=== PATIENT | female | born 2000 | race American Indian/Alaskan Native ===

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

== ENCOUNTER 2018-03-31 11:18 | Emergency (ER) | payer OTHER ==
[2018-03-31 12:03] LABS: Bacteria,Urine 2+ /HPF (Negative); Bilirubin,Urine NEG (Negative); Blood,Urine LG (Negative); Color,Urine Yellow (Yellow); Mucus,Urine 3+ /HPF
[2018-03-31 12:04] LABS: RBC,Urine > 182.0 /HPF (0.0-6.0)
--- NOTE | 2018-03-31 12:18 | Emergency Department Report ---
ED Abdominal Pain HPI - General Chief Complaint: Abdominal Pain Stated Complaint: 18 WKS /LOWER ABD PAIN/HEADACHE Time Seen by Provider: 03/31/18 11:53 Source: patient Mode of arrival: Ambulatory Limitations: No Limitations - History of Present Illness Initial Comments: Ms. Landaverde is a 17 yo who is currently 18 weeks 2 days . She presents with 3 days of Right lower quadrant pain radiating to right back. She has had similar pain intermittently since 11 weeks. She has a large ovarian cyst 6 cm on right which has been followed by her OBGYN physician at [facility]. Pain is achy, moderately severe. No treatment attempted prior to arrival. Pain is worse with supine position. No fever. No vomiting. No vaginal bleeding. No vaginal discharge. Intact appetite. First for patient ASHVIN August 30, 2018 Severity scale (0 -10): 0 - Related Data Previous Rx's Medication Instructions Recorded Last Taken Type Erythromycin [Erythromycin Ophth 0.25 inch TP TID #1 tube 02/05/15 Unknown Rx Oint] Sulfamethoxazole/Trimethoprim 1 each PO BID #10 tablet 02/05/15 Unknown Rx [Bactrim DS TAB] Ibuprofen [Motrin 600 MG tab] 600 mg PO TID #30 tablet 02/04/17 Unknown Rx Amoxicillin/Potassium Clav 1 each PO BID #14 tablet 08/18/17 Unknown Rx [Augmentin 875-125 Tablet] Dextromethorphan/Benzocaine 1 each PO Q4H PRN #1 box 08/18/17 Unknown Rx [Cepacol Sorethroat-Cough Magdy] Ibuprofen [Motrin] 600 mg PO Q8H PRN #20 tablet 08/18/17 Unknown Rx Ibuprofen [Motrin] 600 mg PO Q8H PRN #20 tablet 12/18/17 Unknown Rx Nitrofurantoin Macrocrystal 100 mg PO BID 10 Days #20 capsule 01/21/18 Unknown Rx [Nitrofurantoin] Ondansetron [Zofran Odt] 4 mg PO Q8HR #15 tab.rapdis 02/10/18 Unknown Rx metroNIDAZOLE [Metronidazole] 500 mg PO BID #14 tablet 02/10/18 Unknown Rx Allergies Allergy/AdvReac Type Severity Reaction Status Date / Time No Known Allergies Allergy Verified 09/27/17 11:54 ED Review of Systems ROS: Stated complaint: 18 WKS /LOWER ABD PAIN/HEADACHE Other details as noted in HPI Comment: All other systems reviewed and negative Constitutional: denies: fever, malaise Respiratory: denies: cough Cardiovascular: denies: chest pain Gastrointestinal: abdominal pain. denies: nausea, vomiting, diarrhea Genitourinary: denies: urgency, dysuria, frequency, discharge ED Past Medical Hx - Past Medical History Previous Medical History?: Yes Hx Psychiatric Treatment: Yes (DEPRESSION) Additional medical history: strep throat - Social History Smoking Status: Never Smoker Substance Use Type: None - Medications Home Medications: Home Medications Medication Instructions Recorded Confirmed Last Taken Type Erythromycin [Erythromycin Ophth 0.25 inch TP TID #1 tube 02/05/15 Unknown Rx Oint] Sulfamethoxazole/Trimethoprim 1 each PO BID #10 tablet 02/05/15 Unknown Rx [Bactrim DS TAB] Ibuprofen [Motrin 600 MG tab] 600 mg PO TID #30 tablet 02/04/17 Unknown Rx Amoxicillin/Potassium Clav 1 each PO BID #14 tablet 08/18/17 Unknown Rx [Augmentin 875-125 Tablet] Dextromethorphan/Benzocaine 1 each PO Q4H PRN #1 box 08/18/17 Unknown Rx [Cepacol Sorethroat-Cough Magdy] Ibuprofen [Motrin] 600 mg PO Q8H PRN #20 tablet 08/18/17 Unknown Rx Ibuprofen [Motrin] 600 mg PO Q8H PRN #20 tablet 12/18/17 Unknown Rx Nitrofurantoin Macrocrystal 100 mg PO BID 10 Days #20 capsule 01/21/18 Unknown Rx [Nitrofurantoin] Ondansetron [Zofran Odt] 4 mg PO Q8HR #15 tab.rapdis 02/10/18 Unknown Rx metroNIDAZOLE [Metronidazole] 500 mg PO BID #14 tablet 02/10/18 Unknown Rx ED Physical Exam - General Limitations: No Limitations General appearance: alert, in no apparent distress - Head Head exam: Present: atraumatic, normocephalic - Eye Eye exam: Present: normal appearance - ENT ENT exam: Present: mucous membranes moist - Neck Neck exam: Present: normal inspection. Absent: tenderness, meningismus - Respiratory Respiratory exam: Present: normal lung sounds bilaterally. Absent: respiratory distress, wheezes, rales, rhonchi - Cardiovascular Cardiovascular Exam: Present: regular rate, normal rhythm. Absent: systolic murmur, diastolic murmur, rubs, gallop - GI/Abdominal GI/Abdominal exam: Present: soft, normal bowel sounds. Absent: tenderness, guarding, rebound - Extremities Exam Extremities exam: Present: normal inspection - Back Exam Back exam: Present: normal inspection, full ROM. Absent: tenderness, CVA tenderness (R) - Neurological Exam Neurological exam: Present: alert, oriented X3, normal gait - Psychiatric Psychiatric exam: Present: normal affect, normal mood - Skin Skin exam: Present: warm, dry, intact, normal color. Absent: rash ED Course Vital Signs 03/31/18 03/31/18 03/31/18 11:22 11:54 11:55 Temperature 98.6 F Pulse Rate 108 H 97 H Respiratory 18 18 18 Rate Blood Pressure 117/66 Blood Pressure 104/67 [Right] O2 Sat by Pulse 100 98 98 Oximetry ED Medical Decision Making - Medical Decision Making Mariann is a very pleasant 17 yo female who presents with RLQ pain during second trimester . I do not suspect acute appendicitis, renal colic, pyelonephritis or ovarian torsion with today's presentation. Patient was placed on monitor. During my examination heart rate 79 beats minute, pressure 104/60. No peritoneal signs on examination. I performed bedside ultrasound with transabdominal probe. Positive movement with cardiac activity. Pain possibly due to round ligament pain. I do not suspect persistent pain due to previously seen ovarian cyst however it is possibility. Mother and patient given strong return precautions to return for severe pain, different type of pain, fever, poor appetite, vomiting or vaginal bleeding. Recommended Tylenol and heat. Discharged home in stable condition. She has visit April 10. I reviewed the urinalysis result. Contaminated specimen. Antibiotic therapy is not indicated at this time. Critical care attestation.: If time is entered above; I have spent that time in minutes in the direct care of this critically ill patient, excluding procedure time. ED Disposition Clinical Impression: Abdominal pain affecting Disposition: - TO HOME OR SELFCARE Is pt being admited?: No Does the pt Need Aspirin: No Condition: Stable Instructions: Abdominal Pain in (ED) Referrals: [facility] [Provider Group] - 3-5 Days
[2018-03-31] MEDS ORDERED: TYLENOL PO ONE (12:20)
[2018-04-02 11:57] VITALS: BP 104/67
== END 2018-03-31 12:35 | disposition home or self-care (01) ==
LOC: ED 11:18
DX: O26.891 Other specified pregnancy related conditions, first trimester (principal); F32.9 Major depressive disorder, single episode, unspecified; Z3A.13 13 weeks gestation of pregnancy
CPT/HCPCS: 81001

== ENCOUNTER 2018-07-06 11:05 | Outpatient (CLI) | payer OTHER ==
[2018-07-06 11:22] VITALS: BP 105/76
--- NOTE | 2018-07-06 13:13 | Ultrasound Report ---
BIOPHYSICAL PROFILE: INDICATION: Fell on abdomen 07/02/2018. COMPARISON: None similar. TECHNIQUE: Transabdominal ultrasound with Doppler interrogation. 2 - breathing movements 2 - movements 2 - posture and tone 2 - Qualitative amniotic fluid volume 8 - TOTAL SCORE OF POSSIBLE 8 Heart Rate (bpm) 134 CONCLUSION: Findings, as above.
--- NOTE | 2018-07-06 13:14 | Ultrasound Report ---
OB LIMITED INDICATION: labor. COMPARISON: 02/10/2018 TECHNIQUE: Transabdominal grayscale ultrasound with Doppler interrogation. Gestation: Srivastava Position: Cephalic Amniotic Fluid: WNL (7-24 cm) LEE = 12.7 cm Heart Rate: 134 BPM CONCLUSION: Findings, as above.
== END 2018-07-06 13:25 | disposition home or self-care (01) ==
LOC: TRG 11:05
PROVIDERS: ATTEND Obstetrics & Gynecology
DX: O47.03 False labor before 37 completed weeks of gestation, third trimester (principal); Z3A.31 31 weeks gestation of pregnancy
CPT/HCPCS: 59025; 76815; 76819

== ENCOUNTER 2018-07-15 14:00 | Outpatient (CLI) | payer OTHER ==
[2018-07-15 14:42] VITALS: BP 122/78
[2018-07-15] MEDS ORDERED: LACTATED RINGERS 500 ML IV ONE (15:03)
[2018-07-15 17:05] LABS: Bacteria,Urine 3+ /HPF (Negative); Bilirubin,Urine NEG (Negative); Blood,Urine NEG (Negative); Color,Urine Yellow (Yellow); Mucus,Urine FEW /HPF; Protein,Urine <15 mg/dL mg/dL (Negative); Urobilinogen,Urine < 2.0 mg/dL (<2.0)
[2018-07-15] MEDS ORDERED: ROCEPHIN IM STA (17:24)
[2018-07-15] MEDS ORDERED: XYLOCAINE 1% MPF 5 mL INFILTRATI STA (17:24)
== END 2018-07-15 18:01 | disposition home or self-care (01) ==
LOC: TRG 14:00
PROVIDERS: ATTEND Obstetrics & Gynecology
DX: O26.893 Other specified pregnancy related conditions, third trimester (principal); R10.31 Right lower quadrant pain; M54.9 Dorsalgia, unspecified; R51 Headache; R11.0 Nausea; O60.03 Preterm labor without delivery, third trimester; Z3A.32 32 weeks gestation of pregnancy
CPT/HCPCS: 36415; 59025; 81001; 82731; 96372; J0696

== ENCOUNTER 2018-08-18 16:10 | Inpatient (IN) | payer OTHER ==
[2018-08-18] MEDS ORDERED: LACTATED RINGERS 1,000 ML IV SCH ×2 (17:00→20:00)
[2018-08-18 17:40] LABS: Bacteria,Urine 1+ /HPF (Negative); Bilirubin,Urine NEG (Negative); Blood,Urine NEG (Negative); Color,Urine Yellow (Yellow); Mucus,Urine FEW /HPF; Protein,Urine <15 mg/dL mg/dL (Negative)
[2018-08-18 19:16] LABS: Basophils # (Auto) 0.1 K/mm3 (0.0-0.1); Basophils % (Auto) 0.7 % (0.0-1.8); Eosinophils % (Auto) 0.2 % (0.0-4.3); Hematocrit 28.5 % (30.3-42.9); Hemoglobin 9.1 gm/dl (10.1-14.3); Lymphocytes # (Auto) 1.7 K/mm3 (1.2-5.4); Mean Corpuscular HGB Conc 32 % (30-34); Mean Corpuscular Volume 83 fl (79-97); Monocytes # (Auto) 0.7 K/mm3 (0.0-0.8); Monocytes % (Auto) 6.6 % (0.0-7.3); Platelet Count 400 K/mm3 (140-440); Red Blood Count 3.44 M/mm3 (3.65-5.03)
[2018-08-18 19:24] LABS: Alanine Aminotransferase 11 units/L (7-56); Albumin 3.7 g/dL (3.9-5)
[2018-08-18] MEDS ORDERED: SUBLIMAZE IV PRN (19:37)
[2018-08-18] MEDS ORDERED: AMPICILLIN/NS 2 GM/100 ML 2 GM/100 ML BAG IV ONE (19:37)
[2018-08-18] MEDS ORDERED: XYLOCAINE 2% INFILTRATI ONE (19:37)
[2018-08-18] MEDS ORDERED: BRETHINE SUB-Q PRN (19:37)
[2018-08-18 19:42] LABS: BUN/Creatinine Ratio 13; Blood Urea Nitrogen 9 mg/dL (7-17); Calcium 8.8 mg/dL (8.4-10.2); Hemolysis Index 7
--- NOTE | 2018-08-18 19:49 | History and Physical Report ---
History of Present Illness Date of examination: 08/18/18 Date of admission: 08/18/2018 Chief complaint: Contractions History of present illness: 18 year old female presents to L&D with complaint of contractions. Patient denies vaginal bleeding or leaking of fluid. Pt. reports active movement. Denies headache or swelling or visual disturbance. Patient received care at [facility] and records were obtained. LMP 11/27/17. EDC 09/03/18. significant for vitamin D deficiency and anemia. labs are as follows: O+, antibody screen negative, rubella immune, hepatitis B surface antigen negative, HIV negative, RPR nonreactive, hemoglobin electrophoresis normal, urine culture negative, GC/CT/TV negative, 1 hour sugar test 105, GBS unknown. Past History Past Medical History: no pertinent history Past Surgical History: no surgical history [employer] History: denies: chlamydia, gonorrhea, hepatitis B, herpes, HIV, syphilis, trichomonas Family/Genetic History: diabetes, hypertension, stroke, cancer Social history: single, lives with family, full code. denies: smoking, alcohol abuse, prescription drug abuse, IV drug use - Obstetrical History Expected Date of Delivery: 09/03/18 Actual Gestation: 37 Week(s) 5 Day(s) : 1 Para: 0 Hx # Term Pregnancies: 0 Number of Pregnancies: 0 Spontaneous Abortions: 0 Induced : 0 Number of Living Children: 0 Medications and Allergies Allergies Allergy/AdvReac Type Severity Reaction Status Date / Time No Known Allergies Allergy Verified 07/15/18 13:38 Home Medications Medication Instructions Recorded Confirmed Last Taken Type No Known Home Medications [No 07/15/18 07/15/18 Unknown History Reported Home Medications] Active Meds: Active Medications Ephedrine Sulfate (Ephedrine Sulfate) 10 mg IV Q2M PRN PRN Reason: Hypotension Fentanyl (Sublimaze) 100 mcg IV Q2H PRN PRN Reason: Labor Pain Lactated Ringer's (Lactated Ringers) 1,000 mls @ 125 mls/hr IV DIRECT GIO Oxytocin/Sodium Chloride (Pitocin/Ns 20 Unit/1000ml Drip) 20 units in 1,000 mls @ 125 mls/hr IV DIRECT GIO Lactated Ringer's (Lactated Ringers) 1,000 mls @ 125 mls/hr IV DIRECT GIO Ampicillin Sodium (Ampicillin/Ns 2 Gm/100 Ml) 2 gm in 100 mls @ 100 mls/hr IV ONCE ONE; Protocol Stop: 08/18/18 20:36 Ampicillin Sodium (Ampicillin/Ns 1 Gm/50 Ml) 1 gm in 50 mls @ 100 mls/hr IV Q4HR [facility]; Protocol Lidocaine (Xylocaine 2%) 20 ml INFILTRATI ONCE ONE Stop: 08/18/18 19:38 Terbutaline Sulfate (Brethine) 0.25 mg SUB-Q ONCE PRN PRN Reason: Hyperstimulation/Hypertonicity Review of Systems All systems: negative (contractions) - Vital Signs Vital signs: Vital Signs Pulse BP 101 H 141/79 08/18/18 16:24 08/18/18 16:24 Temp Pulse Resp BP Pulse Ox 98.6 F 93 H 12 123/78 98 08/18/18 16:35 08/18/18 18:32 08/18/18 16:35 08/18/18 18:32 08/18/18 17:20 - Physical Exam Abdomen: Positive: normal appearance, soft. Negative: distention, tenderness, guarding, rigidity Genitourinary (Female): Positive: normal external genitalia, normal perenium (no lesions noted on careful exam with bright light upon admission). Negative: perineal/vulvar lesions Vagina: Positive: normal moisture Uterus: Positive: enlarged (size=dates) Anus/Rectum: Positive: normal perianal skin Extremities: Positive: normal. Negative: tenderness, edema - Obstetrical FHR: category 1 Uterine Contraction Monitor Mode: External Cervical Dilatation: 4 Cervical Effacement Percentage: 70 station: -3 Uterine Contraction Pattern: Regular Uterine Contraction Intensity: Moderate Results Result Diagrams: 08/18/18 18:25 08/18/18 18:25 Abnormal lab results 08/18/18 08/18/18 08/18/18 Range/Units 17:00 18:25 18:25 WBC 11.2 H (4.5-11.0) K/mm3 RBC 3.44 L (3.65-5.03) M/mm3 Hgb 9.1 L (10.1-14.3) gm/dl Hct 28.5 L (30.3-42.9) % MCH 27 L (28-32) pg RDW 16.0 H (13.2-15.2) % Seg Neutrophils % 77.5 H (40.0-70.0) % Seg Neutrophils # 8.7 H (1.8-7.7) K/mm3 Sodium 134 L (137-145) mmol/L Carbon Dioxide 16 L (22-30) mmol/L Alkaline Phosphatase 196 H (35-129) units/L Lactate Dehydrogenase 210 H (91-180) units/L Albumin 3.7 L (3.9-5) g/dL Urine WBC (Auto) 14.0 H (0.0-6.0) /HPF All other labs normal. Assessment and Plan A: at 37 weeks, 5 days gestation. Labor. GBS unknown. P: Admit. GBS prophylaxis. EFM. Anticipate vaginal .
[2018-08-18] MEDS ORDERED: PITOCin/NS 20 UNIT/1000ML DRIP 20 UNITS/1,000 ML BAG IV SCH (20:00)
[2018-08-19] MEDS: AMPICILLIN/NS 1 GM/50 ML 1 GM/50 ML BAG IV SCH ×4 (07:46→19:33)
--- NOTE | 2018-08-19 09:31 | Progress Note ---
Assessment and Plan A: at 37 6/7 weeks gestation. GBS positive. P: Continue GBS prophylaxis. Augment labor with Pitocin. Informed MD of Pitocin labor augmentation at 37 6/7 weeks. Discussed with patient risks and benefits of Pitocin augmentation of labor. Patient consented to Pitocin augmentation of labor. Subjective - Subjective Date of service: 08/19/18 Principal diagnosis: at 37 6/7 weeks Interval history: at 37 6/7 weeks gestation. Patient reports active movement. She denies leaking of fluid or vaginal bleeding. She denies headache. Patient reports: movement normal, contractions (Contractions have spaced overnight; now having mild irregular contractions), no new complaints, no loss of fluid, no vaginal bleeding Objective - Vital Signs Vital Signs: Vital Signs - 12hr 08/18/18 08/19/18 08/19/18 22:31 00:38 07:21 Temperature 97.9 F Pulse Rate 78 89 Respiratory 18 Rate Blood Pressure 106/68 121/75 08/19/18 07:26 Temperature Pulse Rate 81 Respiratory Rate Blood Pressure 133/90 - Exam Abdomen: Present: normal appearance. Absent: soft, distention, tenderness, rigidity Uterus: Present: normal, fundal height above umbilicus. Absent: bogginess, tenderness FHR: category 1 (Reviewed tracing from overnight: 2 variable FHR decelerations and one late FHR deceleration. No repetitive decels. ) Cervical Dilatation: 4 Cervical Effacement Percentage: 70 station: -3 Uterine Contraction Pattern: Irregular Uterine Contraction Intensity: Mild Extremities: normal - Labs Labs: Abnormal Labs 08/18/18 08/18/18 08/18/18 17:00 18:25 18:25 WBC 11.2 H RBC 3.44 L Hgb 9.1 L Hct 28.5 L MCH 27 L RDW 16.0 H Seg Neutrophils % 77.5 H Seg Neutrophils # 8.7 H Sodium 134 L Carbon Dioxide 16 L Alkaline Phosphatase 196 H Lactate Dehydrogenase 210 H Albumin 3.7 L Urine WBC (Auto) 14.0 H Laboratory Results - last 24 hr 08/18/18 08/18/18 08/18/18 17:00 18:25 18:25 WBC 11.2 H RBC 3.44 L Hgb 9.1 L Hct 28.5 L MCV 83 MCH 27 L MCHC 32 RDW 16.0 H Plt Count 400 Lymph % (Auto) 15.0 Swain % (Auto) 6.6 Eos % (Auto) 0.2 Baso % (Auto) 0.7 Lymph # 1.7 Swain # 0.7 Eos # 0.0 Baso # 0.1 Seg Neutrophils % 77.5 H Seg Neutrophils # 8.7 H Sodium 134 L Potassium 3.6 Chloride 101.7 Carbon Dioxide 16 L Anion Gap 20 BUN 9 Creatinine 0.7 Estimated GFR > 60 BUN/Creatinine Ratio 13 Glucose 76 Uric Acid Calcium 8.8 Total Bilirubin 0.40 AST 25 ALT 11 Alkaline Phosphatase 196 H Lactate Dehydrogenase 210 H Total Protein 7.4 Albumin 3.7 L Albumin/Globulin Ratio 1.0 Urine Color Yellow Urine Turbidity Slightly-cloudy Urine pH 6.0 Ur Specific [place] 1.015 Urine Protein <15 mg/dl Urine Glucose (UA) Neg Urine Ketones Neg Urine Blood Neg Urine Nitrite Neg Urine Bilirubin Neg Urine Urobilinogen 2.0 Ur Leukocyte Esterase Mod Urine WBC (Auto) 14.0 H Urine RBC (Auto) 2.0 U Epithel Cells (Auto) 4.0 Urine Bacteria (Auto) 1+ Urine Mucus Few Blood Type Antibody Screen 08/18/18 08/18/18 18:25 18:30 WBC RBC Hgb Hct MCV MCH MCHC RDW Plt Count Lymph % (Auto) Swain % (Auto) Eos % (Auto) Baso % (Auto) Lymph # Swain # Eos # Baso # Seg Neutrophils % Seg Neutrophils # Sodium Potassium Chloride Carbon Dioxide Anion Gap BUN Creatinine Estimated GFR BUN/Creatinine Ratio Glucose Uric Acid 4.4 Calcium Total Bilirubin AST ALT Alkaline Phosphatase Lactate Dehydrogenase Total Protein Albumin Albumin/Globulin Ratio Urine Color Urine Turbidity Urine pH Ur Specific [place] Urine Protein Urine Glucose (UA) Urine Ketones Urine Blood Urine Nitrite Urine Bilirubin Urine Urobilinogen Ur Leukocyte Esterase Urine WBC (Auto) Urine RBC (Auto) U Epithel Cells (Auto) Urine Bacteria (Auto) Urine Mucus Blood Type O POSITIVE Antibody Screen Negative
--- NOTE | 2018-08-19 09:53 | Ultrasound Report ---
PROCEDURE: US OB LIMITED TECHNIQUE: Limited images obtained of intrauterine and biophysical profile HISTORY: LEE COMPARISONS: February 10, 2018 FINDINGS: There is a single viable intrauterine in cephalic presentation. The heart rate is 141 bpm. Amniotic fluid index within normal limits at 22.5 cm. Largest amniotic fluid pocket is 8.3 cm. Biophysical profile yields a score of 8 out of 8. No measurements obtained for dating on this examination. IMPRESSION: Single viable intrauterine in cephalic presentation. Biophysical profile yields a score of 8 out of 8.. This document is electronically signed by Adria Avery MD., August 19 2018 09:37:46 AM ET
[2018-08-19] MEDS ORDERED: PITOCin/NS 30 UNIT/500ML 30 UNITS/500 ML BAG IV SCH (10:00)
--- NOTE | 2018-08-19 16:12 | Event Note ---
Date: 08/19/18 Patient has received Fentanyl for pain. SVE /0/BBOW.
[2018-08-19] MEDS ORDERED: XYLOCAINE 2% INFILTRATI ONE (19:33)
[2018-08-19] MEDS ORDERED: LANSINOH TP PRN (20:24)
[2018-08-19] MEDS ORDERED: MILK OF MAGNESIA PO PRN (20:24)
[2018-08-19] MEDS ORDERED: TUCKS PAD TP PRN (20:24)
[2018-08-19] MEDS ORDERED: NORCO 5/325 PO PRN (20:24)
--- NOTE | 2018-08-19 20:31 | Procedure Note ---
OB Delivery Note - Delivery Date of Delivery: 08/19/18 Surgeon: ESE DE LA TORRE Estimated blood loss: 200cc - Vaginal Delivery presentation: vertex Delivery position: OA Intrapartum events: none Delivery induction: none Delivery augmentation: pitocin Delivery monitor: external FHT, external uterine Route of delivery: Delivery placenta: spontaneous Delivery cord: nuchal cord, 3 umbilical vessels, other (body cord) Delivery laceration: none Anesthesia: none Delivery comments: Spontaneous vaginal delivery at 19:56 of liveborn female infant weighing 4 lb. 14 oz. over intact perineum with apgars of 8/9. Loose nuchal cord, body cord, cord around baby's right arm. Baby placed skin to skin on mom's chest immediately after delivery; dried, bulb suctioned and stimulated. Spontaneous cry and respirations. 3 vessel cord double clamped and cut after cessation of pulsation. Cord blood obtained. Spontaneous delivery of intact placenta and membranes by gage mechanism. EBL 200 cc. Pitocin to IV fluids after delivery of placenta. Fundus firm and midline. No lacerations noted. Vaginal sweep negative. Sponge count correct. Mother and baby stable in birthing room.
[2018-08-19] MEDS ORDERED: SODIUM CHLORIDE FLUSH SYRINGE 10 ML IV PRN (21:00)
[2018-08-19] MEDS: IBUPROFEN PO SCH (22:40)
[2018-08-19] MEDS: COLACE PO SCH (22:41)
[2018-08-20] MEDS: IBUPROFEN PO SCH ×3 (03:14→22:59)
[2018-08-20 10:51] LABS: Hematocrit 22.7 % (30.3-42.9); Hemoglobin 7.2 gm/dl (10.1-14.3)
--- NOTE | 2018-08-20 10:59 | Progress Note ---
Assessment and Plan A: day 1 S/P spontaneous vaginal delivery. Anemia secondary to and blood loss. P: Supplement with oral iron. Repeat H&H in the morning. Subjective - Subjective Date of service: 08/20/18 Principal diagnosis: day 1 S/P spontaneous vaginal delivery Interval history: day 1 S/P spontaneous vaginal delivery. Doing well. Patient reports small amount of lochia. Voiding without difficulty, ambulating well, tolerating a regular diet. Patient deneis headache, chest pain, cough, shortness of breath, dizziness, leg pain, or heavy vaginal bleeding. Patient reports: appetite normal, voiding normally, pain well controlled, flatus, ambulating normally, no dizzy ambulation, no nauseated [place]: doing well Objective - Vital Signs Latest vital signs: Vital Signs Temp Pulse Resp BP Pulse Ox 08/20/18 08:46 98.2 F 81 16 109/78 98 08/20/18 05:18 98.0 F 81 18 123/64 98 08/20/18 04:14 18 08/20/18 03:14 18 08/20/18 02:03 98.3 F 95 H 18 117/72 97 08/19/18 23:40 18 08/19/18 22:40 18 08/19/18 21:42 98.0 F 89 18 122/65 99 08/19/18 21:05 91 H 117/64 08/19/18 20:49 104 H 119/82 08/19/18 20:36 90 120/82 08/19/18 20:05 104 H 130/71 08/19/18 19:31 106 H 100 08/19/18 19:26 109 H 98 08/19/18 19:21 114 H 98 08/19/18 19:07 111 H 99 08/19/18 19:05 97.3 F L 103 H 08/19/18 19:02 118 H 100 08/19/18 18:49 119 H 99 08/19/18 18:44 132 H 99 08/19/18 18:39 100 H 98 08/19/18 18:34 114 H 100 08/19/18 18:29 100 H 100 08/19/18 18:24 109 H 100 08/19/18 18:06 97 H 95 08/19/18 18:05 91 H 76 L 08/19/18 18:01 97 H 99 08/19/18 17:56 102 H 96 08/19/18 17:51 72 98 08/19/18 17:46 105 H 96 08/19/18 17:41 106 H 97 08/19/18 17:36 99 H 97 08/19/18 17:31 89 96 08/19/18 17:26 102 H 97 08/19/18 17:21 113 H 98 08/19/18 17:16 108 H 98 08/19/18 17:15 98.2 F 18 08/19/18 17:11 75 98 08/19/18 17:06 88 98 08/19/18 17:01 70 99 08/19/18 16:56 85 98 08/19/18 16:51 86 97 08/19/18 16:46 77 98 08/19/18 16:45 89 91 08/19/18 16:41 85 97 08/19/18 16:36 97 H 97 08/19/18 16:34 102 H 94 08/19/18 16:31 76 96 08/19/18 16:26 97 H 93 08/19/18 16:21 92 H 98 08/19/18 16:16 78 96 08/19/18 16:11 73 98 08/19/18 16:06 90 96 08/19/18 16:01 105 H 96 08/19/18 15:56 103 H 96 08/19/18 15:51 97 H 97 08/19/18 15:46 95 H 97 08/19/18 15:41 76 98 08/19/18 15:36 88 99 08/19/18 15:31 78 98 08/19/18 15:26 82 97 08/19/18 15:21 78 93 08/19/18 15:16 89 97 08/19/18 15:11 83 97 08/19/18 15:06 88 97 08/19/18 15:01 82 97 08/19/18 14:56 74 97 08/19/18 14:51 73 97 08/19/18 14:46 76 97 08/19/18 14:41 74 97 08/19/18 14:36 87 96 08/19/18 14:31 78 97 08/19/18 14:26 86 97 08/19/18 14:21 83 97 08/19/18 14:16 80 98 08/19/18 14:11 84 98 08/19/18 14:06 76 97 08/19/18 14:01 72 98 08/19/18 13:56 80 98 08/19/18 13:51 89 98 08/19/18 13:40 91 H 98 08/19/18 13:35 89 98 08/19/18 13:30 97 H 97 08/19/18 13:25 96 H 98 08/19/18 13:20 78 98 08/19/18 13:15 83 98 08/19/18 13:10 88 97 08/19/18 13:06 96 H 93 08/19/18 13:05 93 H 98 08/19/18 13:00 84 99 08/19/18 12:55 82 98 08/19/18 12:50 80 98 08/19/18 12:45 83 98 08/19/18 12:40 78 98 08/19/18 12:35 81 98 08/19/18 12:32 82 131/75 08/19/18 12:30 97.9 F 83 18 98 08/19/18 12:25 76 98 08/19/18 12:20 67 98 08/19/18 12:15 78 98 08/19/18 12:10 76 98 08/19/18 12:05 80 98 08/19/18 12:00 71 98 08/19/18 11:55 79 98 08/19/18 11:50 66 98 08/19/18 11:45 70 99 08/19/18 11:40 74 98 08/19/18 11:35 72 98 08/19/18 11:30 73 98 08/19/18 11:25 85 98 08/19/18 11:20 78 97 08/19/18 11:15 72 99 08/19/18 11:10 77 100 08/19/18 11:02 76 97 08/19/18 10:57 76 99 Intake and Output 08/19/18 08/20/18 08/20/18 23:59 07:59 15:59 Intake Total 459.866 360 Output Total 400 300 Balance 59.866 60 Intake: IV 99.866 AMPICILLIN/NS 1 GM/50 ML 50 1 gm In 50 ml @ 100 mls/ hr IV Q4HR [facility] Rx#: [id number] PITOCin/NS 30 UNIT/500ML 49.866 30 units In 500 ml @ Per Protocol IV TITR GIO Rx#: [id number] Oral 360 360 Output: Urine 400 300 Indwelling Catheter 0 Void 400 300 Other: Total, Intake Amount 360 120 Total, Output Amount 400 300 # Voids Void 1 2 Estimated Blood Loss 200 - Exam Abdomen: Present: normal appearance, soft. Absent: distention, tenderness, guarding, rigidity Uterus: Present: normal, firm, fundal height below umbilicus. Absent: boggine ss, tenderness Extremities: Present: normal. Absent: tenderness, edema - Labs Labs: Abnormal lab results 08/20/18 Range/Units 09:47 Hgb 7.2 L (10.1-14.3) gm/dl Hct 22.7 L (30.3-42.9) %
[2018-08-20] MEDS: FEOSOL PO SCH ×2 (13:42→23:00)
[2018-08-20] MEDS: COLACE PO SCH ×2 (13:43→22:59)
[2018-08-21] MEDS: IBUPROFEN PO SCH ×3 (06:43→23:37)
[2018-08-21 08:53] LABS: Hematocrit 22.7 % (30.3-42.9); Hemoglobin 7.4 gm/dl (10.1-14.3)
--- NOTE | 2018-08-21 10:15 | Progress Note ---
Assessment and Plan - Patient Problems (1) Status post normal vaginal delivery Current Visit: Yes Status: Acute Plan to address problem: PPD 2 - occasional mild dizziness with ambulation Continue routine orders Discharge to home 08/22/18 Follow up at [facility] as needed or in 6 weeks for exam (2) Anemia due to blood loss, acute Current Visit: Yes Status: Acute Plan to address problem: Symptomatic - mild dizziness with ambulation initially Continue iron therapy Subjective - Subjective Date of service: 08/21/18 Principal diagnosis: PPD #2; s/p ; Anemia Interval history: see H&P, OB Progress Note, Event Note, OB Delivery Procedure Note and PP/COREMAKER PIPE Progress Note Patient reports: appetite normal, voiding normally, dizzy ambulation (reports occasional dizziness with ambulation), pain well controlled, ambulating normally [place]: doing well, other (breast and bottle feeding) Objective - Vital Signs Latest vital signs: Vital Signs Temp Pulse Resp BP Pulse Ox 08/20/18 22:45 98.6 F 96 H 20 115/68 99 08/20/18 16:46 99.2 F 91 H 16 112/67 98 08/20/18 13:11 98.0 F 85 16 122/77 98 Intake and Output 08/20/18 08/21/18 08/21/18 23:59 07:59 15:59 Intake Total 240 Balance 240 Intake: Oral 240 Other: Total, Intake Amount 240 # Voids Void 1 1 - Exam Cardiovascular: Present: Regular rate Lungs: Present: Clear to auscultation Abdomen: Present: normal appearance, soft Vulva: both: normal Uterus: Present: normal, firm, fundal height below umbilicus Extremities: Present: normal Comments: scant lochia - Labs Labs: Abnormal lab results 08/20/18 08/21/18 Range/Units 09:47 08:39 Hgb 7.2 L 7.4 L (10.1-14.3) gm/dl Hct 22.7 L 22.7 L (30.3-42.9) %
[2018-08-21] MEDS: COLACE PO SCH ×2 (13:15→23:37)
[2018-08-21] MEDS: FEOSOL PO SCH ×3 (13:15→23:37)
--- NOTE | 2018-08-21 17:19 | Discharge Summary ---
Providers - Providers Date of Admission: 08/18/18 20:16 Date of discharge: 08/22/18 Attending physician: LIZ ARAIZA MD Primary care physician: LIZ ARAIZA MD Hospitalization Reason for admission: active labor, IUP at term Delivery: Episiotomy: none Laceration: none Other procedures: none complications: none Discharge diagnosis: IUP at term delivered [place] baby: female Hospital course: Uncomplicated Condition at discharge: Stable Disposition: AR-01 TO HOME OR SELFCARE - Discharge Diagnoses (1) Status post normal vaginal delivery Status: Acute (2) Anemia due to blood loss, acute Status: Acute Comment: Currently asymptomatic Continue iron therapy Plan - Provider Discharge Summary Activity: routine, no sex for 6 weeks, no heavy lifting 4 weeks, no strenuous exercise Diet: routine Instructions: routine Additional instructions: [] Smoking cessation referral if applicable(refer to patient education folder for contact #) [] Refer to [facility] Booklet Call your doctor immediately for: * Fever > 100.5 * Heavy vaginal bleeding ( >1 pad per hour) * Severe persistent headache * Shortness of breath * Reddened, hot, painful area to leg or breast * Drainage or odor from incision. * Keep incision clean and dry at all times and follow doctor's instructions regarding bathing/showering - Follow up plan Follow up: LIZ ARAIZA MD [Primary Care Provider] - 6 Weeks (Follow up at [facility] as needed or in 6 weeks for exam.)
[2018-08-22] MEDS: IBUPROFEN PO SCH ×2 (05:51→06:48)
[2018-08-22 09:55] VITALS: BP 117/71
[2018-08-22] MEDS: FEOSOL PO SCH ×2 (11:03→14:40)
[2018-08-22] MEDS: COLACE PO SCH (11:03)
== END 2018-08-22 15:00 | disposition home or self-care (01) | DRG 775 ==
LOC: TRG 16:10 → LD 20:16 → OB 08-19 21:58
PROVIDERS: ADMIT Obstetrics & Gynecology; ATTEND Obstetrics & Gynecology
PROC: 10E0XZZ Delivery of Products of Conception, External Approach (ICD-10-PCS; principal; 2018-08-19)
DX: O99.824 Streptococcus B carrier state complicating childbirth (principal); Z3A.37 37 weeks gestation of pregnancy; Z37.0 Single live birth; O69.81X0 Labor and delivery complicated by cord around neck, without compression, not applicable or unspecified; O99.03 Anemia complicating the puerperium; D62 Acute posthemorrhagic anemia; Z83.3 Family history of diabetes mellitus; Z82.49 Family history of ischemic heart disease and other diseases of the circulatory system; Z80.9 Family history of malignant neoplasm, unspecified
CPT/HCPCS: 36415; 76815; 76819; 80053; 81001; 83615; 84550; 85014; 85018; 85025; 86592; 86850; 86900; 86901; 87086; G0378; A6250; J0290; J2590; J3010; J3105; J7120

== ENCOUNTER 2019-01-08 08:28 | Emergency (ER) | payer SELFPAY ==
[2019-01-08 08:37] VITALS: BP 142/91
--- NOTE | 2019-01-08 08:39 | Emergency Department Report ---
- General Stated Complaint: SORE THROAT/CHEST PAIN/HEADACHE Time Seen by Provider: 01/08/19 08:35 - History of Present Illness Initial Comments: pt is a 18 yo female who presents to the ED with c/o URI symptoms. she states that she has had a sore throat which feels itchy and dry. she has associated dry cough, rhinorrhea, congestion. she denies any fever, vomiting, diarrhea, ear pain. + sick contact at home with URI symptoms. states she took nyquil. no PMHx. no allergies to meds. states she had a influenza LNMP: dec 27; - Related Data Previous Rx's Medication Instructions Recorded Last Taken Type Cetirizine HCl [Zyrtec 10mg tab] 10 mg PO DAILY #14 tablet 01/08/19 Unknown Rx Fluticasone [Flonase] 1 spray NS QDAY #1 bottle 01/08/19 Unknown Rx guaiFENesin ER [Mucinex ER] 600 mg PO Q12H #14 tablet.er 01/08/19 Unknown Rx Allergies Allergy/AdvReac Type Severity Reaction Status Date / Time No Known Allergies Allergy Verified 07/15/18 13:38 ED Review of Systems ROS: Stated complaint: SORE THROAT/CHEST PAIN/HEADACHE Other details as noted in HPI Comment: All other systems reviewed and negative ED Past Medical Hx - Past Medical History Hx Hypertension: No Hx Diabetes: No Hx Deep Vein Thrombosis: No Hx Renal Disease: No Hx Sickle Cell Disease: No Hx Seizures: No Hx Psychiatric Treatment: Yes (DEPRESSION) Hx Asthma: No Hx COPD: No Hx HIV: No Additional medical history: strep throat - Social History Smoking Status: Never Smoker - Medications Home Medications: Home Medications Medication Instructions Recorded Confirmed Last Taken Type Cetirizine HCl [Zyrtec 10mg tab] 10 mg PO DAILY #14 tablet 01/08/19 Unknown Rx Fluticasone [Flonase] 1 spray NS QDAY #1 bottle 01/08/19 Unknown Rx guaiFENesin ER [Mucinex ER] 600 mg PO Q12H #14 tablet.er 01/08/19 Unknown Rx ED Physical Exam - General General appearance: alert, in no apparent distress - Head Head exam: Present: atraumatic, normocephalic - Eye Eye exam: Present: normal appearance - ENT ENT exam: Present: normal orophraynx, mucous membranes moist, TM's normal bilaterally, normal external ear exam, other (mucus drainage bilaterally nares, no sinus TTP bilaterally) - Respiratory Respiratory exam: Present: normal lung sounds bilaterally. Absent: respiratory distress, wheezes, rales, rhonchi, stridor, chest wall tenderness, accessory muscle use, decreased breath sounds, prolonged expiratory - Cardiovascular Cardiovascular Exam: Present: regular rate, normal rhythm, normal heart sounds. Absent: systolic murmur, diastolic murmur, rubs, gallop - Neurological Exam Neurological exam: Present: alert, oriented X3 - Psychiatric Psychiatric exam: Present: normal affect, normal mood - Skin Skin exam: Present: warm, dry, intact ED Course Vital Signs 01/08/19 08:35 Temperature 98.2 F Pulse Rate 88 Respiratory 20 Rate Blood Pressure 142/91 O2 Sat by Pulse 96 Oximetry ED Medical Decision Making - Medical Decision Making pt is a 18 yo female who presents to the ED with c/o URI symptoms. she states that she has had a sore throat which feels itchy and dry. she has associated dry cough, rhinorrhea, congestion. she denies any fever, vomiting, diarrhea, ear pain. + sick contact at home with URI symptoms. states she took nyquil. no PMHx. no allergies to meds. states she had a influenza LNMP: dec 27. Vitals are normal. Patient is afebrile. No tachycardia. On exam mucus drainage bilaterally nares, no sinus TTP bilaterally, breath sounds are clear bilaterally without wheezes rales or rhonchi. No clinical signs or symptoms of influenza or pneumonia. Symptoms and examination consistent with viral URI. Patient will be given symptomatic treatment. advised pt to please take medication as prescribed. increase your fluid intake over the next couple days. may use humidifier, warm salt water gargles, drink warm tea, and throat spray over the counter. follow up with your primary care doctor in the next 3 days. return to the emergency room for any new or worsening symptoms. - Differential Diagnosis PNA, URI, viral syndrome, influenza, sinusitis, otitis media, pharyngitis Critical care attestation.: If time is entered above; I have spent that time in minutes in the direct care of this critically ill patient, excluding procedure time. ED Disposition Clinical Impression: Upper respiratory infection Qualifiers: URI type: unspecified URI Qualified Code(s): J06.9 - Acute upper respiratory infection, unspecified Disposition: DC- TO HOME OR SELFCARE Is pt being admited?: No Does the pt Need Aspirin: No Condition: Stable Instructions: Upper Respiratory Infection (ED) Additional Instructions: please take medication as prescribed. increase your fluid intake over the next couple days. may use humidifier, warm salt water gargles, drink warm tea, and throat spray over the counter. follow up with your primary care doctor in the next 3 days. return to the emergency room for any new or worsening symptoms. Prescriptions: Fluticasone [Flonase] 1 spray NS QDAY #1 bottle guaiFENesin ER [Mucinex ER] 600 mg PO Q12H #14 tablet.er Cetirizine HCl [Zyrtec 10mg tab] 10 mg PO DAILY #14 tablet Referrals: [facility] [Provider Group] - 2-3 Days Forms: Work/School Release Form(ED) Time of Disposition: 08:42 Print Language: GHANAIAN
== END 2019-01-08 09:01 | disposition home or self-care (01) ==
LOC: ED 08:28 → EEVIPCON 08:28 → ED 09:01
DX: J06.9 Acute upper respiratory infection, unspecified (principal); F32.9 Major depressive disorder, single episode, unspecified

== ENCOUNTER 2019-02-07 10:54 | Emergency (ER) | payer SELFPAY ==
[2019-02-07] MEDS ORDERED: SODIUM CHLORIDE 0.9% 1000 ML 1,000 ML IV ONE (11:51)
[2019-02-07 12:32] LABS: Basophils # (Auto) 0.1 K/mm3 (0.0-0.1); Basophils % (Auto) 0.7 % (0.0-1.8); Eosinophils # (Auto) 0.1 K/mm3 (0.0-0.4); Eosinophils % (Auto) 1.1 % (0.0-4.3); Hematocrit 29.8 % (30.3-42.9); Hemoglobin 9.4 gm/dl (10.1-14.3); Lymphocytes # (Auto) 1.3 K/mm3 (1.2-5.4); Lymphocytes % (Auto) 17.2 % (13.4-35.0); Mean Corpuscular HGB Conc 32 % (30-34); Mean Corpuscular Volume 76 fl (79-97); Monocytes # (Auto) 0.5 K/mm3 (0.0-0.8); Platelet Count 364 K/mm3 (140-440); Red Blood Count 3.92 M/mm3 (3.65-5.03); Red Cell Distribution Width 16.9 % (13.2-15.2)
--- NOTE | 2019-02-07 12:47 | Emergency Department Report ---
ED General Adult HPI - General Chief complaint: Syncope Stated complaint: HEADACHE Time Seen by Provider: 02/07/19 11:21 Source: patient Mode of arrival: Ambulatory Limitations: No Limitations - History of Present Illness Initial comments: She'll presents to the emergency department for chief complaint of passing out. Patient states she was at work walking when she became very weak and dizzy and at that time to go blood pressure was 90/52. Patient states at this point she was trying to get to the nurses station when she passed out. Patient denies any chest pain or shortness of her prior to and after the syncopal episode. Patient complains of a diffuse throbbing headache and states that she hit her head against a desk when she fell. Patient's family also states that she has a habit of eating bonds powder and the patient states this has been present since she gave to her child 5 months ago. -: Sudden Severity scale (0 -10): 1 Quality: other (throbbing) Consistency: now resolved Improves with: none Worsens with: none Associated Symptoms: denies other symptoms Treatments Prior to Arrival: none - Related Data Previous Rx's Medication Instructions Recorded Last Taken Type Cetirizine HCl [Zyrtec 10mg tab] 10 mg PO DAILY #14 tablet 01/08/19 Unknown Rx Fluticasone [Flonase] 1 spray NS QDAY #1 bottle 01/08/19 Unknown Rx guaiFENesin ER [Mucinex ER] 600 mg PO Q12H #14 tablet.er 01/08/19 Unknown Rx Allergies Allergy/AdvReac Type Severity Reaction Status Date / Time No Known Allergies Allergy Verified 07/15/18 13:38 ED Review of Systems ROS: Stated complaint: HEADACHE Other details as noted in HPI Comment: All other systems reviewed and negative Constitutional: denies: chills, fever Eyes: denies: eye pain, eye discharge, vision change ENT: denies: ear pain, throat pain Respiratory: denies: cough, shortness of breath, wheezing Cardiovascular: denies: chest pain, palpitations Endocrine: no symptoms reported Gastrointestinal: denies: abdominal pain, nausea, diarrhea Genitourinary: denies: urgency, dysuria, discharge Musculoskeletal: denies: back pain, joint swelling, arthralgia Skin: denies: rash, lesions Neurological: denies: headache, weakness, paresthesias Psychiatric: denies: anxiety, depression Hematological/Lymphatic: denies: easy bleeding, easy bruising ED Past Medical Hx - Past Medical History Hx Hypertension: No Hx Diabetes: No Hx Deep Vein Thrombosis: No Hx Renal Disease: No Hx Sickle Cell Disease: No Hx Seizures: No Hx Psychiatric Treatment: Yes (DEPRESSION) Hx Asthma: No Hx COPD: No Hx HIV: No Additional medical history: strep throat - Surgical History Past Surgical History?: No - Social History Smoking Status: Never Smoker Substance Use Type: None - Medications Home Medications: Home Medications Medication Instructions Recorded Confirmed Last Taken Type Cetirizine HCl [Zyrtec 10mg tab] 10 mg PO DAILY #14 tablet 01/08/19 Unknown Rx Fluticasone [Flonase] 1 spray NS QDAY #1 bottle 01/08/19 Unknown Rx guaiFENesin ER [Mucinex ER] 600 mg PO Q12H #14 tablet.er 01/08/19 Unknown Rx ED Physical Exam - General Limitations: No Limitations General appearance: alert, in no apparent distress - Head Head exam: Present: atraumatic, normocephalic - Eye Eye exam: Present: normal appearance - ENT ENT exam: Present: mucous membranes dry - Neck Neck exam: Present: normal inspection - Respiratory Respiratory exam: Present: normal lung sounds bilaterally. Absent: respiratory distress - Cardiovascular Cardiovascular Exam: Present: regular rate, normal rhythm. Absent: systolic murmur, diastolic murmur, rubs, gallop - GI/Abdominal GI/Abdominal exam: Present: soft, normal bowel sounds. Absent: distended, tenderness - Extremities Exam Extremities exam: Present: normal inspection - Back Exam Back exam: Present: normal inspection - Neurological Exam Neurological exam: Present: alert, oriented X3, CN II-XII intact. Absent: motor sensory deficit - Psychiatric Psychiatric exam: Present: normal affect, normal mood - Skin Skin exam: Present: warm, dry, intact, normal color. Absent: rash ED Course Vital Signs 02/07/19 02/07/19 02/07/19 10:58 11:24 11:28 Temperature 97.4 F L 98.5 F Pulse Rate 79 84 Respiratory 18 18 Rate Blood Pressure 123/63 116/76 Blood Pressure 116/76 [Right] O2 Sat by Pulse 100 99 100 Oximetry 02/07/19 02/07/19 02/07/19 11:30 11:46 12:00 Temperature Pulse Rate 83 93 H 87 Respiratory 18 19 16 Rate Blood Pressure 116/76 116/76 119/71 Blood Pressure [Right] O2 Sat by Pulse 99 100 100 Oximetry 02/07/19 02/07/19 02/07/19 12:16 12:30 12:45 Temperature Pulse Rate 98 H 89 100 H Respiratory 17 15 15 Rate Blood Pressure 119/71 119/71 119/71 Blood Pressure [Right] O2 Sat by Pulse 100 100 99 Oximetry 02/07/19 02/07/19 13:00 13:16 Temperature Pulse Rate 83 Respiratory 12 Rate Blood Pressure 117/67 117/67 Blood Pressure [Right] O2 Sat by Pulse 100 100 Oximetry ED Medical Decision Making - Lab Data Result diagrams: 02/07/19 12:02 02/07/19 12:02 Lab Results 02/07/19 02/07/19 02/07/19 Range/Units 12:02 12:02 12:02 WBC 7.4 (4.5-11.0) K/mm3 RBC 3.92 (3.65-5.03) M/mm3 Hgb 9.4 L (10.1-14.3) gm/dl Hct 29.8 L (30.3-42.9) % MCV 76 L (79-97) fl MCH 24 L (28-32) pg MCHC 32 (30-34) % RDW 16.9 H (13.2-15.2) % Plt Count 364 (140-440) K/mm3 Lymph % (Auto) 17.2 (13.4-35.0) % [place] % (Auto) 7.0 (0.0-7.3) % Eos % (Auto) 1.1 (0.0-4.3) % Baso % (Auto) 0.7 (0.0-1.8) % Lymph # 1.3 (1.2-5.4) K/mm3 [place] # 0.5 (0.0-0.8) K/mm3 Eos # 0.1 (0.0-0.4) K/mm3 Baso # 0.1 (0.0-0.1) K/mm3 Seg Neutrophils % 74.0 H (40.0-70.0) % Seg Neutrophils # 5.5 (1.8-7.7) K/mm3 D-Dimer 1316.59 H (0-234) ng/mlDDU Sodium 139 (137-145) mmol/L Potassium 4.1 (3.6-5.0) mmol/L Chloride 105.6 (98-107) mmol/L Carbon Dioxide 23 (22-30) mmol/L Anion Gap 15 mmol/L BUN 9 (7-17) mg/dL Creatinine 0.6 L (0.7-1.2) mg/dL Estimated GFR > 60 ml/min BUN/Creatinine Ratio 15 % Glucose 74 (65-100) mg/dL Calcium 9.0 (8.4-10.2) mg/dL Total Bilirubin 0.40 (0.1-1.2) mg/dL AST 27 (5-40) units/L ALT 23 (7-56) units/L Alkaline Phosphatase 89 (35-129) units/L Total Protein 7.4 (6.3-8.2) g/dL Albumin 4.2 (3.9-5) g/dL Albumin/Globulin Ratio 1.3 % HCG, Quant (0-4) mIU/mL Urine Color (Yellow) Urine Turbidity (Clear) Urine pH (5.0-7.0) Ur Specific [place] (1.003-1.030) Urine Protein (Negative) mg/dL Urine Glucose (UA) (Negative) mg/dL Urine Ketones (Negative) mg/dL Urine Blood (Negative) Urine Nitrite (Negative) Urine Bilirubin (Negative) Urine Urobilinogen (<2.0) mg/dL Ur Leukocyte Esterase (Negative) Urine WBC (Auto) (0.0-6.0) /HPF Urine RBC (Auto) (0.0-6.0) /HPF U Epithel Cells (Auto) (0-13.0) /HPF Urine Bacteria (Auto) (Negative) /HPF 02/07/19 02/07/19 Range/Units 12:02 12:52 WBC (4.5-11.0) K/mm3 RBC (3.65-5.03) M/mm3 Hgb (10.1-14.3) gm/dl Hct (30.3-42.9) % MCV (79-97) fl MCH (28-32) pg MCHC (30-34) % RDW (13.2-15.2) % Plt Count (140-440) K/mm3 Lymph % (Auto) (13.4-35.0) % [place] % (Auto) (0.0-7.3) % Eos % (Auto) (0.0-4.3) % Baso % (Auto) (0.0-1.8) % Lymph # (1.2-5.4) K/mm3 [place] # (0.0-0.8) K/mm3 Eos # (0.0-0.4) K/mm3 Baso # (0.0-0.1) K/mm3 Seg Neutrophils % (40.0-70.0) % Seg Neutrophils # (1.8-7.7) K/mm3 D-Dimer (0-234) ng/mlDDU Sodium (137-145) mmol/L Potassium (3.6-5.0) mmol/L Chloride (98-107) mmol/L Carbon Dioxide (22-30) mmol/L Anion Gap mmol/L BUN (7-17) mg/dL Creatinine (0.7-1.2) mg/dL Estimated GFR ml/min BUN/Creatinine Ratio % Glucose (65-100) mg/dL Calcium (8.4-10.2) mg/dL Total Bilirubin (0.1-1.2) mg/dL AST (5-40) units/L ALT (7-56) units/L Alkaline Phosphatase (35-129) units/L Total Protein (6.3-8.2) g/dL Albumin (3.9-5) g/dL Albumin/Globulin Ratio % HCG, Quant < 2 (0-4) mIU/mL Urine Color Colorless (Yellow) Urine Turbidity Clear (Clear) Urine pH 8.0 H (5.0-7.0) Ur Specific [place] 1.003 (1.003-1.030) Urine Protein <15 mg/dl (Negative) mg/dL Urine Glucose (UA) Neg (Negative) mg/dL Urine Ketones Neg (Negative) mg/dL Urine Blood Neg (Negative) Urine Nitrite Neg (Negative) Urine Bilirubin Neg (Negative) Urine Urobilinogen < 2.0 (<2.0) mg/dL Ur Leukocyte Esterase Sm (Negative) Urine WBC (Auto) 7.0 H (0.0-6.0) /HPF Urine RBC (Auto) < 1.0 (0.0-6.0) /HPF U Epithel Cells (Auto) 8.0 (0-13.0) /HPF Urine Bacteria (Auto) 1+ (Negative) /HPF - EKG Data -: EKG Interpreted by Me EKG shows normal: sinus rhythm Rate: normal - Radiology Data Radiology results: report reviewed - Medical Decision Making IV fluids were given CT of the head was done because the patient complained of a headache status post syncopal episode which resulted in a hose head injury CT of the chest was done due to the elevated d-dimer along with the patient was syncopal episode and hypotension a PE had to be ruled out Critical care attestation.: If time is entered above; I have spent that time in minutes in the direct care of this critically ill patient, excluding procedure time. ED Disposition Clinical Impression: Syncope and collapse, Closed head injury Disposition: - TO HOME OR SELFCARE Is pt being admited?: No Does the pt Need Aspirin: No Condition: Stable Instructions: Syncope (ED), Minor Head Injury (ED) Additional Instructions: return if worse Referrals: PRIMARY MD BALDEV [Primary Care Provider] - 3-5 Days [facility] [Provider Group] - 3-5 Days [facility] [Provider Group] - 3-5 Days KIERRA OWENS MD [Staff Physician] - 3-5 Days Time of Disposition: 15:24
[2019-02-07 12:56] LABS: Alanine Aminotransferase 23 units/L (7-56); Albumin 4.2 g/dL (3.9-5); BUN/Creatinine Ratio 15; Blood Urea Nitrogen 9 mg/dL (7-17); Hemolysis Index 0
[2019-02-07 13:22] VITALS: BP 117/67
--- NOTE | 2019-02-07 13:26 | XRay Report ---
CHEST 1 VIEW INDICATION: syncope upt. COMPARISON: None. FINDINGS: Support devices: None. Heart: Within normal limits. Pulmonary vasculature: Normal. Lungs/Pleura: No acute air space or interstitial disease. Additional findings: None. IMPRESSION: Normal chest. Signer Name: Vasquez Lopez MD Signed: 02/07/2019 1:22 PM Workstation Name: [id number]
[2019-02-07 13:27] LABS: Bacteria,Urine 1+ /HPF (Negative); Bilirubin,Urine NEG (Negative); Blood,Urine NEG (Negative); Color,Urine Colorless (Yellow); Protein,Urine <15 mg/dL mg/dL (Negative); RBC,Urine < 1.0 /HPF (0.0-6.0); Urobilinogen,Urine < 2.0 mg/dL (<2.0)
--- NOTE | 2019-02-07 15:00 | Cat Scan Report ---
CTA CHEST WITH CONTRAST INDICATION : syncope with elevated d-dimer. TECHNIQUE: Axial imaging performed through the chest, with contrast bolus timing set to maximize opa cification of the pulmonary arteries. Sagittal and coronal reformatted images. 3-plane MIP reformatte d images were obtained. All CT scans at this location are performed using CT dose reduction for ALAR A by means of automated exposure control. 100 mL of intravenous contrast administered. COMPARISON: None FINDINGS: Bolus: Contrast bolus timing is adequate. PTE: No filling defect is present to suggest PTE. Mediastinum: Heart and great vessels appear normal. No pathologic mediastinal adenopathy. Lungs: Lungs are clear. Bones: Degenerative changes in the spine with nothing acute. Upper abdomen: Limited imaging of the upper abdomen shows nothing acute. IMPRESSION: Negative for PTE. Clear lungs. Signer Name: Wilmer Sadler Jr, MD Signed: 02/07/2019 2:56 PM Workstation Name: [id number]
--- NOTE | 2019-02-07 15:19 | Cat Scan Report ---
. CT HEAD WITHOUT CONTRAST INDICATION / CLINICAL INFORMATION: syncope with SUERO. TECHNIQUE: Axial imaging performed from the skull apex through the skull base without the use of cont rast. Sagittal and coronal reformatted images. All CT scans at this location are performed using CT dose reduction for ALARA by means of automated exposure control. COMPARISON: None available. FINDINGS: CEREBRAL PARENCHYMA: No significant abnormality. No acute territorial infarct. HEMORRHAGE: None. EXTRA-AXIAL SPACES: Normal in size and morphology for the patient's age. VENTRICULAR SYSTEM: Normal in size and morphology for the patient's age. MIDLINE SHIFT OR HERNIATION: None. CEREBELLUM / BRAINSTEM: No significant abnormality. CALVARIUM: No significant abnormality. ORBITS: Normal as visualized. PARANASAL SINUSES / MASTOID AIR CELLS: Normal as visualized. SOFT TISSUES of HEAD: No significant abnormality. ADDITIONAL FINDINGS: None. IMPRESSION: No acute intracranial abnormality. Signer Name: Wilmer Sadler Jr, MD Signed: 02/07/2019 3:15 PM Workstation Name: [id number]
[2019-02-07] MEDS ORDERED: ACETAMINOPHEN 500 MG TAB PO ONE (15:38)
== END 2019-02-07 17:19 | disposition home or self-care (01) ==
LOC: ED 10:54
DX: S09.90XA Unspecified injury of head, initial encounter (principal); R55 Syncope and collapse; F32.9 Major depressive disorder, single episode, unspecified; Z79.899 Other long term (current) drug therapy; X58.XXXA Exposure to other specified factors, initial encounter; Y93.89 Activity, other specified; Y92.89 Other specified places as the place of occurrence of the external cause; Y99.8 Other external cause status
CPT/HCPCS: 36415; 70450; 71045; 71275; 80053; 81001; 84702; 85025; 85379; 93005; 93010; 96360; 99285; J7030; Q9967; 96361

== ENCOUNTER 2019-12-08 17:40 | Emergency (ER) | payer OTHER ==
[2019-12-08] MEDS ORDERED: SODIUM CHLORIDE 0.9% 1000 ML 1,000 ML IV ONE ×2 (20:45→23:31)
--- NOTE | 2019-12-08 20:49 | Emergency Department Report ---
ED General Adult HPI - General Chief complaint: Pain General Stated complaint: HEADACHES/TINGLE/LEG GETS HEAVY Time Seen by Provider: 12/08/19 20:40 Source: patient Mode of arrival: Ambulatory Limitations: No Limitations - History of Present Illness Initial comments: Patient is 19 years old female with no significant past history. Patient is status post 3 weeks ago with epidural anesthesia. Patient presented to the ER complaining of numbness and tingling sensation in her upper and lower extremities. Patient also stated that she is feeling that her legs little bit heavy especially when she sits for a while. She denying any problem with walking however. She denied any bowel or bladder incontinence. Patient also denied any fever or chills. Patient is complaining of headache on and off since the epidural, no neck pain. - Related Data Previous Rx's Medication Instructions Recorded Last Taken Type Ibuprofen [Motrin 800 MG tab] 800 mg PO Q6H PRN #30 tablet 11/14/19 Unknown Rx oxyCODONE /ACETAMINOPHEN [Percocet 1 tab PO Q6H PRN #30 tablet 11/14/19 Unknown Rx 5/325 mg] Ferrous Sulfate [Ferrous Sulfate 324 mg PO BID #120 tablet. 11/15/19 Unknown Rx 324 MG] Allergies Allergy/AdvReac Type Severity Reaction Status Date / Time No Known Allergies Allergy Verified 07/15/18 13:38 ED Review of Systems ROS: Stated complaint: HEADACHES/TINGLE/LEG GETS HEAVY Other details as noted in HPI Comment: All other systems reviewed and negative Cardiovascular: denies: chest pain Gastrointestinal: denies: abdominal pain, nausea, vomiting Musculoskeletal: denies: back pain Neurological: headache. denies: weakness, numbness, paresthesias, confusion ED Past Medical Hx - Past Medical History Previous Medical History?: Yes Hx Hypertension: No Hx Diabetes: No Hx Deep Vein Thrombosis: No Hx Renal Disease: No Hx Sickle Cell Disease: No Hx Seizures: No Hx Psychiatric Treatment: Yes (DEPRESSION) Hx Asthma: No Hx COPD: No Hx HIV: No Additional medical history: strep throat, with twins - Surgical History Past Surgical History?: Yes Additional Surgical History: x 1 - Social History Smoking Status: Never Smoker Substance Use Type: None - Medications Home Medications: Home Medications Medication Instructions Recorded Confirmed Last Taken Type Ibuprofen [Motrin 800 MG tab] 800 mg PO Q6H PRN #30 tablet 11/14/19 Unknown Rx oxyCODONE /ACETAMINOPHEN [Percocet 1 tab PO Q6H PRN #30 tablet 11/14/19 Unknown Rx 5/325 mg] Ferrous Sulfate [Ferrous Sulfate 324 mg PO BID #120 tablet. 11/15/19 Unknown Rx 324 MG] ED Physical Exam - General Limitations: No Limitations General appearance: alert, in no apparent distress - Head Head exam: Present: atraumatic, normocephalic, normal inspection - Eye Eye exam: Present: normal appearance - ENT ENT exam: Present: normal exam, normal orophraynx, mucous membranes moist - Neck Neck exam: Present: normal inspection, full ROM. Absent: tenderness, meningismus - Respiratory Respiratory exam: Present: normal lung sounds bilaterally - Cardiovascular Cardiovascular Exam: Present: regular rate, normal rhythm, normal heart sounds - GI/Abdominal GI/Abdominal exam: Present: soft, normal bowel sounds. Absent: distended, tenderness, guarding, rebound, rigid, organomegaly, mass, bruit, pulsatile mass, hernia - Extremities Exam Extremities exam: Present: normal inspection, full ROM, normal capillary refill. Absent: pedal edema, calf tenderness - Back Exam Back exam: Present: normal inspection, full ROM. Absent: CVA tenderness (R), CVA tenderness (L) - Neurological Exam Neurological exam: Present: alert, oriented X3, CN II-XII intact, normal gait, reflexes normal. Absent: abnormal gait, motor sensory deficit - Psychiatric Psychiatric exam: Present: normal mood - Skin Skin exam: Present: warm, intact, normal color ED Course Vital Signs 12/08/19 12/08/19 12/08/19 17:54 21:25 21:30 Temperature 98.2 F Pulse Rate 86 64 62 Respiratory 20 17 19 Rate Blood Pressure 121/74 117/62 Blood Pressure 111/61 [Right] O2 Sat by Pulse 98 100 100 Oximetry 12/08/19 12/08/19 12/08/19 21:45 22:00 22:15 Temperature Pulse Rate 65 62 65 Respiratory 19 18 18 Rate Blood Pressure 108/65 127/71 116/68 Blood Pressure [Right] O2 Sat by Pulse 100 100 100 Oximetry 12/08/19 12/08/19 12/08/19 22:30 22:45 23:00 Temperature Pulse Rate 67 64 65 Respiratory 20 24 13 Rate Blood Pressure 116/67 111/65 121/68 Blood Pressure [Right] O2 Sat by Pulse 100 100 100 Oximetry 12/08/19 12/08/19 12/08/19 23:15 23:30 23:45 Temperature Pulse Rate 67 65 66 Respiratory 20 18 17 Rate Blood Pressure 113/62 115/58 117/73 Blood Pressure [Right] O2 Sat by Pulse 100 100 100 Oximetry 12/08/19 12/09/19 12/09/19 23:51 00:00 00:15 Temperature Pulse Rate 66 70 64 Respiratory 20 19 15 Rate Blood Pressure 113/62 118/75 118/75 Blood Pressure [Right] O2 Sat by Pulse 100 100 100 Oximetry 12/09/19 00:30 Temperature Pulse Rate 65 Respiratory 23 Rate Blood Pressure 123/66 Blood Pressure [Right] O2 Sat by Pulse 100 Oximetry ED Medical Decision Making - Lab Data Result diagrams: 12/08/19 21:27 12/08/19 21:27 - Medical Decision Making Patient is 19 years old female with no significant past history. Patient is status post 3 weeks ago with epidural anesthesia. Patient presented to the ER complaining of numbness and tingling sensation in her upper and lower extremities. Patient also stated that she is feeling that her legs little bit heavy especially when she sits for a while. She denying any problem with walking however. She denied any bowel or bladder incontinence. Patient also denied any fever or chills. Patient is complaining of headache on and off since the epidural, no neck pain. Patient found to be dehydrated and hypokalemic. Patient received normal saline and potassium chloride. Labs reviewed and otherwise is unremarkable except for her chronic anemia. Patient stated that she is feeling much better. Patient strongly advised her OB doctor in the next 2 to 3 days return to the ER if she develop any new symptoms Critical care attestation.: If time is entered above; I have spent that time in minutes in the direct care of this critically ill patient, excluding procedure time. ED Disposition Clinical Impression: Hypokalemia, spinal headache Disposition: TO HOME OR SELFCARE Is pt being admited?: No Condition: Stable Instructions: Hypokalemia (ED), Dehydration (ED) Referrals: PRIMARY CARE, [Primary Care Provider] - 3-5 Days
[2019-12-08 21:55] LABS: Hematocrit 29.2 % (30.3-42.9); Mean Corpuscular HGB Conc 31 % (30-34); Mean Corpuscular Volume 78 fl (79-97); Platelet Count 425 K/mm3 (140-440); Red Blood Count 3.77 M/mm3 (3.65-5.03)
[2019-12-08 22:00] LABS: Red Cell Distribution Width 26.4 % (13.2-15.2)
[2019-12-08 22:16] LABS: Alanine Aminotransferase 10 units/L (7-56); Albumin 3.8 g/dL (3.9-5); BUN/Creatinine Ratio 23; Blood Urea Nitrogen 14 mg/dL (7-17); Calcium 8.5 mg/dL (8.4-10.2); Hemolysis Index 2
[2019-12-08 22:30] LABS: Anisocytosis 2+; Basophils % (Manual) 0 % (0.0-1.8); Total Cells Counted 100
[2019-12-08 22:31] LABS: Hypochromasia 1+; Poikilocytosis 1+; Tear Drop Cells Rare
[2019-12-08 22:53] LABS: Bilirubin,Urine NEG (Negative); Blood,Urine SM (Negative); Color,Urine Yellow (Yellow); Mucus,Urine 3+ /HPF
[2019-12-08] MEDS ORDERED: dexAMETHasone 4 MG/ML VIAL IV ONE (23:33)
[2019-12-08] MEDS: POTASSIUM CHLORIDE 10 MEQ 10 MEQ/100 ML BAG IV SCH (23:45)
[2019-12-09] MEDS: POTASSIUM CHLORIDE 10 MEQ 10 MEQ/100 ML BAG IV SCH (00:48)
[2019-12-09] MEDS ORDERED: SODIUM CHLORIDE 0.9% 500 ML 500 ML ONE (01:05)
[2019-12-09] MEDS ORDERED: SODIUM CHLORIDE 0.9% 500 ML 500 ML IV ONE (01:07)
[2019-12-09 02:16] VITALS: BP 121/76
== END 2019-12-09 02:20 | disposition home or self-care (01) ==
LOC: ED 17:40 → EEVIPCON 17:40 → ED 12-09 02:20
DX: O99.285 Endocrine, nutritional and metabolic diseases complicating the puerperium (principal); O89.4 Spinal and epidural anesthesia-induced headache during the puerperium; E87.6 Hypokalemia; F32.9 Major depressive disorder, single episode, unspecified; Z79.899 Other long term (current) drug therapy
CPT/HCPCS: 36415; 80053; 81001; 85007; 85025; 96361; 96365; 96366; 99283; J3480; J7030; J7040

== ENCOUNTER 2020-02-23 13:01 | Emergency (ER) | payer OTHER ==
[2020-02-23 13:41] VITALS: BP 115/78
--- NOTE | 2020-02-23 13:52 | Emergency Department Report ---
ED General Adult HPI - General Chief complaint: Sore Throat Stated complaint: CHEST PAIN/SORE THROAT Time Seen by Provider: 02/23/20 13:19 Source: patient Mode of arrival: Ambulatory Limitations: No Limitations - History of Present Illness Initial comments: 19-year-old -[place] female patient presents with complaints of sore throat, cough, chest pain, and body aches and headache x3 days. She rates her throat pain as a 7/10 in severity and states it worsens with swallowing. She describes the chest pain as stabbing but denies any shortness of breath or hemoptysis. No nausea/vomiting/diarrhea or abdominal pain per patient. She also denies rash. No past medical history per patient Severity scale (0 -10): 8 - Related Data Previous Rx's Medication Instructions Recorded Last Taken Type oxyCODONE /ACETAMINOPHEN [Percocet 1 tab PO Q6H PRN #30 tablet 11/14/19 Unknown Rx 5/325 mg] Ferrous Sulfate [Ferrous Sulfate 324 mg PO BID #120 tablet. 11/15/19 Unknown Rx 324 MG] Amoxicillin/Potassium Clav 1 each PO BID 10 Days #20 tablet 02/23/20 Unknown Rx [Augmentin 875-125 Tablet] Ibuprofen [Motrin 800 MG tab] 800 mg PO Q8H PRN #20 tablet 02/23/20 Unknown Rx Allergies Allergy/AdvReac Type Severity Reaction Status Date / Time No Known Allergies Allergy Verified 07/15/18 13:38 ED Review of Systems ROS: Stated complaint: CHEST PAIN/SORE THROAT Other details as noted in HPI Constitutional: malaise. denies: chills, diaphoresis, fever, weakness ENT: throat pain Respiratory: cough. denies: shortness of breath Cardiovascular: chest pain Gastrointestinal: denies: nausea, vomiting Skin: denies: rash, lesions, change in color Neurological: headache. denies: numbness, paresthesias ED Past Medical Hx - Past Medical History Previous Medical History?: Yes Hx Hypertension: No Hx Diabetes: No Hx Deep Vein Thrombosis: No Hx Renal Disease: No Hx Sickle Cell Disease: No Hx Seizures: No Hx Psychiatric Treatment: Yes (DEPRESSION) Hx Asthma: No Hx COPD: No Hx HIV: No Additional medical history: strep throat, with twins - Surgical History Past Surgical History?: Yes Additional Surgical History: x 1 - Social History Smoking Status: Never Smoker Substance Use Type: None - Medications Home Medications: Home Medications Medication Instructions Recorded Confirmed Last Taken Type oxyCODONE /ACETAMINOPHEN [Percocet 1 tab PO Q6H PRN #30 tablet 11/14/19 Unknown Rx 5/325 mg] Ferrous Sulfate [Ferrous Sulfate 324 mg PO BID #120 tablet. 11/15/19 Unknown Rx 324 MG] Amoxicillin/Potassium Clav 1 each PO BID 10 Days #20 tablet 02/23/20 Unknown Rx [Augmentin 875-125 Tablet] Ibuprofen [Motrin 800 MG tab] 800 mg PO Q8H PRN #20 tablet 02/23/20 Unknown Rx ED Physical Exam - General Limitations: No Limitations General appearance: alert, in no apparent distress - Head Head exam: Present: atraumatic, normocephalic - Eye Eye exam: Present: normal appearance. Absent: scleral icterus - ENT ENT exam: Present: mucous membranes moist - Expanded ENT Exam Expanded Throat exam: Positive: tonsillar erythema (Mild), tonsillomegaly (My), other (Uvula is midline). Negative: tonsillar exudate, R peritonsillar mass, L peritonsillar mass - Neck Neck exam: Present: full ROM. Absent: lymphadenopathy - Respiratory Respiratory exam: Present: normal lung sounds bilaterally. Absent: respiratory distress - Cardiovascular Cardiovascular Exam: Present: regular rate, normal rhythm - Back Exam Back exam: Present: normal inspection - Neurological Exam Neurological exam: Present: alert, oriented X3, normal gait. Absent: motor sensory deficit - Psychiatric Psychiatric exam: Present: normal affect, normal mood - Skin Skin exam: Present: warm, dry, intact, normal color. Absent: rash, cyanosis, diaphoretic, erythema, petechiae, ecchymosis ED Course Vital Signs 02/23/20 13:40 Temperature 98.3 F Pulse Rate 97 H Respiratory 20 Rate Blood Pressure 115/78 [Right] O2 Sat by Pulse 96 Oximetry ED Medical Decision Making - Lab Data Result diagrams: 02/23/20 14:51 02/23/20 14:51 Lab Results 02/23/20 02/23/20 02/23/20 Range/Units 14:51 14:51 Unknown WBC 4.4 L (4.5-11.0) K/mm3 RBC 4.27 (3.65-5.03) M/mm3 Hgb 10.7 (10.1-14.3) gm/dl Hct 32.3 (30.3-42.9) % MCV 76 L (79-97) fl MCH 25 L (28-32) pg MCHC 33 (30-34) % RDW 18.7 H (13.2-15.2) % Plt Count 333 (140-440) K/mm3 Lymph % (Auto) 39.0 H (13.4-35.0) % [place] % (Auto) 11.4 H (0.0-7.3) % Eos % (Auto) 0.1 (0.0-4.3) % Baso % (Auto) 0.7 (0.0-1.8) % Lymph # (Auto) 1.7 (1.2-5.4) K/mm3 [place] # (Auto) 0.5 (0.0-0.8) K/mm3 Eos # (Auto) 0.0 (0.0-0.4) K/mm3 Baso # (Auto) 0.0 (0.0-0.1) K/mm3 Seg Neutrophils % 48.8 (40.0-70.0) % Seg Neutrophils # 2.2 (1.8-7.7) K/mm3 ESR 16 (0-20) mm/Hr Sodium 139 (137-145) mmol/L Potassium 3.8 (3.6-5.0) mmol/L Chloride 104.8 (98-107) mmol/L Carbon Dioxide 25 (22-30) mmol/L Anion Gap 13 mmol/L BUN 12 (7-17) mg/dL Creatinine 0.8 (0.6-1.2) mg/dL Estimated GFR > 60 ml/min BUN/Creatinine Ratio 15 % Glucose 87 (65-100) mg/dL Calcium 9.2 (8.4-10.2) mg/dL Total Bilirubin 0.30 (0.1-1.2) mg/dL AST 24 (5-40) units/L ALT 11 (7-56) units/L Alkaline Phosphatase 98 (35-129) units/L Total Protein 7.9 (6.3-8.2) g/dL Albumin 4.3 (3.9-5) g/dL Albumin/Globulin Ratio 1.2 % Group A Strep Rapid Negative (Negative) - Radiology Data Radiology results: report reviewed CHEST 2 VIEWS INDICATION / CLINICAL INFORMATION: Chest pain. COMPARISON: 02/07/19. FINDINGS: SUPPORT DEVICES: None. HEART / MEDIASTINUM: The heart size and pulmonary vasculature are normal. The aorta is normal in caliber. LUNGS / PLEURA: No significant pulmonary or pleural abnormality. No pneumothorax. ADDITIONAL FINDINGS: No significant additional findings. IMPRESSION: No acute abnormality or significant change. - Medical Decision Making 19-year-old -[place] female patient presents with complaints of sore throat, cough, chest pain, and body aches and headache x3 days. She rates her throat pain as a 7/10 in severity and states it worsens with swallowing. She describes the chest pain as stabbing but denies any shortness of breath or hemoptysis. No nausea/vomiting/diarrhea or abdominal pain per patient. She also denies rash. No past medical history per patient Chest x-ray is normal. Labs are WNL. Will treat for strep with Amoxil. Patient follow-up with primary care in 3 to 5 days. Vitals are normal she is stable for discharge home. She is nontoxic-appearing. Discussed signs symptoms that should prompt immediate return to the emergency department in detail with patient who verbalizes understanding. Critical care attestation.: If time is entered above; I have spent that time in minutes in the direct care of this critically ill patient, excluding procedure time. ED Disposition Clinical Impression: Acute bacterial pharyngitis Disposition: DC-01 TO HOME OR SELFCARE Is pt being admited?: No Condition: Stable Instructions: Pharyngitis Additional Instructions: Please discard your toothbrush and get a new one 24 hours after starting the antibiotics and also wash your pillowcases and your sheets so you do not alex nfect herself Prescriptions: Amoxicillin/Potassium Clav [Augmentin 875-125 Tablet] 1 each PO BID 10 Days #20 tablet Ibuprofen [Motrin 800 MG tab] 800 mg PO Q8H PRN #20 tablet PRN Reason: pain Referrals: PRIMARY CARE, [Primary Care Provider] - 3-5 Days
--- NOTE | 2020-02-23 14:28 | XRay Report ---
CHEST 2 VIEWS INDICATION / CLINICAL INFORMATION: Chest pain. COMPARISON: 02/07/19. FINDINGS: SUPPORT DEVICES: None. HEART / MEDIASTINUM: The heart size and pulmonary vasculature are normal. The aorta is normal in ro[place] ang[place]. LUNGS / PLEURA: No significant pulmonary or pleural abnormality. No pneumothorax. ADDITIONAL FINDINGS: No significant additional findings. IMPRESSION: No acute abnormality or significant change. Signer Name: Khai Ramirez MD Signed: 02/23/2020 2:23 PM Workstation Name: [id number]
[2020-02-23 16:06] LABS: Alanine Aminotransferase 11 units/L (7-56); Albumin 4.3 g/dL (3.9-5); BUN/Creatinine Ratio 15; Blood Urea Nitrogen 12 mg/dL (7-17); Calcium 9.2 mg/dL (8.4-10.2); Hemolysis Index 6
[2020-02-23 16:09] LABS: Erythrocyte Sedimentation Rate 16 mm/Hr (0-20)
[2020-02-23 16:15] LABS: Basophils % (Auto) 0.7 % (0.0-1.8); Eosinophils % (Auto) 0.1 % (0.0-4.3); Hematocrit 32.3 % (30.3-42.9); Hemoglobin 10.7 gm/dl (10.1-14.3); Lymphocytes # (Auto) 1.7 K/mm3 (1.2-5.4); Mean Corpuscular HGB Conc 33 % (30-34); Mean Corpuscular Volume 76 fl (79-97); Monocytes # (Auto) 0.5 K/mm3 (0.0-0.8); Monocytes % (Auto) 11.4 % (0.0-7.3); Platelet Count 333 K/mm3 (140-440); Red Blood Count 4.27 M/mm3 (3.65-5.03); Red Cell Distribution Width 18.7 % (13.2-15.2)
== END 2020-02-23 17:20 | disposition home or self-care (01) ==
LOC: ED 13:01
DX: J02.8 Acute pharyngitis due to other specified organisms (principal); B96.89 Other specified bacterial agents as the cause of diseases classified elsewhere; F32.9 Major depressive disorder, single episode, unspecified; Z98.890 Other specified postprocedural states; Z79.899 Other long term (current) drug therapy
CPT/HCPCS: 36415; 71046; 80053; 85025; 85652; 87116; 87430